=== PATIENT | female | born 1935 | race Caucasian/White ===

== ENCOUNTER 2017-05-20 15:14 | Inpatient (IN) | payer OTHER ==
[~2017-05-20] VITALS: Ht 172.7 cm; Wt 104.1 kg
[~2017-05-20 15:14] MED LIST: ASPI-496 PO; ATEN100T PO; ATEN50TA41 PO; HYDR25TA6 PO; LISI-167 PO; LOVA20TA2 PO; MELO15TA24 PO; METF500T4 PO; METO-93 PO; OMEP40CA6 PO; OXYB5TAB7 PO; WARF5TAB7 PO-COUM
[2017-05-20] MEDS ORDERED: OMEP20TA62 PO (16:23)
[2017-05-20] MEDS ORDERED: LEVO500T47 PO (16:23)
[2017-05-20] MEDS ORDERED: CALC1CAP8 PO (16:23)
[2017-05-20] MEDS ORDERED: LISI2.5T PO (16:23)
[2017-05-20] MEDS ORDERED: CYCL7.5T25 PO (16:23)
[2017-05-20] MEDS ORDERED: FURO-93 PO (16:23)
[2017-05-20] MEDS ORDERED: ROPI0.2537 PO (16:26)
[2017-05-20] MEDS ORDERED: DOCU-131 PO (16:26)
[2017-05-20] MEDS ORDERED: DIAZ2TAB PO (16:26)
[2017-05-20] MEDS ORDERED: OXYB5TAB33 PO (16:26)
[2017-05-20] MEDS ORDERED: METO50TA4 PO (16:26)
[2017-05-20] MEDS ORDERED: SODIUM CHLORIDE 0.9% 1,000ML IVBOLUS ONE (16:30)
[2017-05-20] MEDS ORDERED: SODIUM CHLORIDE FLUSH 10ML SYR IVF ONE (16:30)
[2017-05-20 16:49] LABS: BASOPHILS % (AUTO) 0 % (0-1); EOSINOPHILS # (AUTO) 0.04 x10^3/uL (0-0.4); EOSINOPHILS % (AUTO) 1 % (1-7); LYMPHOCYTES # (AUTO) 1.44 x10^3/uL (1-3.4); LYMPHOCYTES % (AUTO) 21 % (22-44); MD NO; MEAN CORPUSCULAR HEMOGLOBIN 24.9 pg (27.0-34.8); MEAN CORPUSCULAR HGB CONC 32.6 g/dL (32.4-35.8); MEAN CORPUSCULAR VOLUME 76.3 fL (80-100); MEAN PLATELET VOLUME 9.1 fL (7.4-10.4); MONOCYTES # (AUTO) 0.64 x10^3/uL (0.2-0.8); MONOCYTES % (AUTO) 9 % (2-9); NEUTROPHILS # (AUTO) 4.87 x10^3/uL (1.8-6.8); NEUTROPHILS % (AUTO) 70 % (42-75); PLATELET COUNT 226 x10^3/uL (130-400); RED BLOOD COUNT 5.32 x10^6/uL (3.82-5.3); RED CELL DISTRIBUTION WIDTH 18.4 % (9.6-15.2)
[2017-05-20 16:58] LABS: INTERNATIONAL NORMALIZED RATIO 2.62 (0.93-1.1); PROTHROMBIN TIME 26.5 Seconds (9.6-11.5)
[2017-05-20 17:01] LABS: ALBUMIN 3.2 g/dL (3.4-5.0); ANION GAP 7 mmol/L (5-15); CALCIUM 8.9 mg/dL (8.5-10.1); CHLORIDE 101 mmol/L (98-107); CREATININE 3.07 mg/dL (0.55-1.02)
[2017-05-20 17:05] LABS: FREE T4 (FREE THYROXINE) 1.85 ng/dL (0.76-1.46); TROPONIN I < 0.015 ng/mL (0.000-0.045)
[2017-05-20] MEDS ORDERED: SODIUM CHLORIDE 0.9% 1,000 ML IV ONE ×2 (18:26→20:00)
[2017-05-20] MEDS ORDERED: SODIUM CHLORIDE FLUSH 10ML SYR IVF PRN (18:30)
[2017-05-20] MEDS ORDERED: SODIUM CHLORIDE 0.9% 1,000 ML IV STA (19:09)
[2017-05-20] MEDS ORDERED: PROMETHAZINE 25 MG/ML, 1ML IM PRN (19:30)
[2017-05-20] MEDS ORDERED: ONDANSETRON 2MG/ML, 2ML IVPush PRN (19:30)
[2017-05-20] MEDS ORDERED: ONDANSETRON ODT 4 MG PO PRN (19:30)
[2017-05-20] MEDS ORDERED: ACETAMINOPHEN 325 MG TABLET PO PRN (19:30)
[2017-05-20 20:01] LABS: BASOPHILS # (AUTO) 0.02 x10^3/uL (0-0.1); BASOPHILS % (AUTO) 0 % (0-1); EOSINOPHILS # (AUTO) 0.05 x10^3/uL (0-0.4); EOSINOPHILS % (AUTO) 1 % (1-7); LYMPHOCYTES # (AUTO) 1.78 x10^3/uL (1-3.4); LYMPHOCYTES % (AUTO) 31 % (22-44); MD NO; MEAN CORPUSCULAR HEMOGLOBIN 25.4 pg (27.0-34.8); MEAN CORPUSCULAR HGB CONC 33.3 g/dL (32.4-35.8); MEAN CORPUSCULAR VOLUME 76.1 fL (80-100); MEAN PLATELET VOLUME 9.1 fL (7.4-10.4); MONOCYTES # (AUTO) 0.51 x10^3/uL (0.2-0.8); MONOCYTES % (AUTO) 9 % (2-9); NEUTROPHILS # (AUTO) 3.47 x10^3/uL (1.8-6.8); NEUTROPHILS % (AUTO) 60 % (42-75); PLATELET COUNT 207 x10^3/uL (130-400); RED BLOOD COUNT 4.86 x10^6/uL (3.82-5.3); RED CELL DISTRIBUTION WIDTH 18.4 % (9.6-15.2)
[2017-05-20 20:13] LABS: TROPONIN I < 0.015 ng/mL (0.000-0.045)
[2017-05-20 20:34] LABS: HEMOGLOBIN A1C 6.4 % (4.2-6.3)
[2017-05-20] MEDS: HEPARIN 5,000 UNITS/ML, 1ML SQ SCH (21:33)
[2017-05-20 21:35] VITALS: BP 110/69
[2017-05-21] MEDS ORDERED: TRAZODONE 50MG TABLET ONE (01:12)
[2017-05-21 01:21] VITALS: BP 105/67
[2017-05-21] MEDS ORDERED: TRAZODONE 50MG TABLET PO ONE (01:30)
[2017-05-21 02:31] LABS: TROPONIN I < 0.015 ng/mL (0.000-0.045)
[2017-05-21] MEDS: HEPARIN 5,000 UNITS/ML, 1ML SQ SCH (05:20)
[2017-05-21] MEDS: ASPIRIN 325 MG TABLET EC PO SCH (05:20)
[2017-05-21 06:13] LABS: ALBUMIN 2.8 g/dL (3.4-5.0); ANION GAP 12 mmol/L (5-15); CALCIUM 8.8 mg/dL (8.5-10.1); CHLORIDE 104 mmol/L (98-107)
[2017-05-21 06:23] LABS: ALANINE AMINOTRANSFERASE 19 U/L (12-78); ALKALINE PHOSPHATASE 101 U/L (45-117); BILIRUBIN,TOTAL 0.4 mg/dL (0.2-1.0); CHOL/HDL RATIO 3.4; CHOLESTEROL, TOTAL 112 mg/dL (140-239); CREATININE 2.24 mg/dL (0.55-1.02); HDL CHOL % 29 % (28-40); HDL CHOLESTEROL (DIRECT) 33 mg/dL (40-60); LDL CHOLESTEROL,CALCULATED 57 mg/dL (54-169); LDL/HDL RATIO 1.7 (0.5-3.0); TOTAL PROTEIN 6.6 g/dL (6.4-8.2); TRIGLYCERIDES 112 mg/dL (50-200); VLDL CHOLESTEROL 22 mg/dL (0-25)
[2017-05-21 07:48] VITALS: BP 114/71
[2017-05-21] MEDS ORDERED: PHARMACY MAY ADJ FOR RENAL FX MC PRN (13:30)
[2017-05-21] MEDS ORDERED: NITROGLYCERIN 0.4 MG/SPRAY SL PRN (13:30)
[2017-05-21] MEDS ORDERED: NITROGLYCERIN 0.4 MG BOTTLE (25 TABS) SL PRN (13:30)
[2017-05-21] MEDS: SODIUM CHLORIDE 0.9% 1,000 ML IV SCH ×2 (13:48→23:47)
[2017-05-21 14:04] VITALS: BP 121/73
[2017-05-21] MEDS: INSULIN ASPART 100 UNITS/ML, PEN SQ-INSULIN SCH ×2 (16:00→21:00)
[2017-05-21 20:07] LABS: CULTURE INDICATED? YES; MICROSCOPIC INDICATED
[2017-05-21] MEDS: SODIUM CHLORIDE FLUSH 10ML SYR IVF SCH (21:19)
[2017-05-21] MEDS: PRAMIPEXOLE 0.125MG TABLET PO SCH (21:19)
[2017-05-21 21:20] VITALS: BP 120/53
[2017-05-22 02:00] VITALS: BP 96/61
[2017-05-22] MEDS: ASPIRIN 325 MG TABLET EC PO SCH (05:53)
[2017-05-22 06:02] LABS: INTERNATIONAL NORMALIZED RATIO 2.14 (0.93-1.1); PROTHROMBIN TIME 21.7 Seconds (9.6-11.5)
[2017-05-22 06:13] LABS: CHLORIDE 106 mmol/L (98-107)
[2017-05-22 06:17] LABS: BASOPHILS # (AUTO) 0.02 x10^3/uL (0-0.1); BASOPHILS % (AUTO) 1 % (0-1); EOSINOPHILS # (AUTO) 0.06 x10^3/uL (0-0.4); EOSINOPHILS % (AUTO) 2 % (1-7); LYMPHOCYTES % (AUTO) 40 % (22-44); MD NO; MEAN CORPUSCULAR HEMOGLOBIN 25.1 pg (27.0-34.8); MEAN CORPUSCULAR HGB CONC 32.9 g/dL (32.4-35.8); MEAN CORPUSCULAR VOLUME 76.4 fL (80-100); MEAN PLATELET VOLUME 9.4 fL (7.4-10.4); MONOCYTES # (AUTO) 0.33 x10^3/uL (0.2-0.8); MONOCYTES % (AUTO) 10 % (2-9); NEUTROPHILS # (AUTO) 1.55 x10^3/uL (1.8-6.8); NEUTROPHILS % (AUTO) 48 % (42-75); PLATELET COUNT 176 x10^3/uL (130-400); RED BLOOD COUNT 4.72 x10^6/uL (3.82-5.3); RED CELL DISTRIBUTION WIDTH 18.3 % (9.6-15.2)
[2017-05-22 06:45] LABS: ALANINE AMINOTRANSFERASE 18 U/L (12-78); ALBUMIN 2.9 g/dL (3.4-5.0); ALKALINE PHOSPHATASE 94 U/L (45-117); ANION GAP 8 mmol/L (5-15); BILIRUBIN,TOTAL 0.4 mg/dL (0.2-1.0); CALCIUM 8.6 mg/dL (8.5-10.1); CREATININE 1.57 mg/dL (0.55-1.02); TOTAL PROTEIN 6.3 g/dL (6.4-8.2)
[2017-05-22] MEDS: INSULIN ASPART 100 UNITS/ML, PEN SQ-INSULIN SCH ×4 (07:00→21:00)
[2017-05-22 07:59] VITALS: BP 129/51
[2017-05-22] MEDS: SODIUM CHLORIDE FLUSH 10ML SYR IVF SCH ×2 (08:30→22:48)
[2017-05-22] MEDS ORDERED: REGADENOSON 0.4 MG/5 ML SYRINGE ONE (10:18)
[2017-05-22] MEDS: SODIUM CHLORIDE 0.9% 1,000 ML IV SCH ×2 (12:57→22:48)
[2017-05-22 14:08] LABS: HCT (SEDRATE) 35.8 % (34.6-47.8)
[2017-05-22 14:55] VITALS: BP 132/54
[2017-05-22] MEDS ORDERED: WARFARIN 5 MG TABLET PO-COUM ONE (18:00)
[2017-05-22 19:24] VITALS: BP 122/65
[2017-05-22] MEDS: PRAMIPEXOLE 0.125MG TABLET PO SCH (22:48)
[2017-05-23 00:05] VITALS: BP 114/70
[2017-05-23] MEDS: METHOCARBAMOL 500 MG TABLET PO PRN ×2 (01:06→06:31)
[2017-05-23 05:09] LABS: BASOPHILS # (AUTO) 0.02 x10^3/uL (0-0.1); BASOPHILS % (AUTO) 1 % (0-1); EOSINOPHILS # (AUTO) 0.06 x10^3/uL (0-0.4); EOSINOPHILS % (AUTO) 2 % (1-7); LYMPHOCYTES # (AUTO) 1.43 x10^3/uL (1-3.4); LYMPHOCYTES % (AUTO) 38 % (22-44); MD NO; MEAN CORPUSCULAR HEMOGLOBIN 25.5 pg (27.0-34.8); MEAN CORPUSCULAR HGB CONC 33.3 g/dL (32.4-35.8); MEAN CORPUSCULAR VOLUME 76.6 fL (80-100); MEAN PLATELET VOLUME 9.3 fL (7.4-10.4); MONOCYTES # (AUTO) 0.37 x10^3/uL (0.2-0.8); MONOCYTES % (AUTO) 10 % (2-9); NEUTROPHILS # (AUTO) 1.92 x10^3/uL (1.8-6.8); NEUTROPHILS % (AUTO) 51 % (42-75); PLATELET COUNT 155 x10^3/uL (130-400); RED CELL DISTRIBUTION WIDTH 18.4 % (9.6-15.2)
[2017-05-23 05:12] LABS: INTERNATIONAL NORMALIZED RATIO 2.14 (0.93-1.1); PROTHROMBIN TIME 21.7 Seconds (9.6-11.5)
[2017-05-23 05:18] LABS: CHLORIDE 108 mmol/L (98-107)
[2017-05-23 05:19] LABS: ANION GAP 6 mmol/L (5-15); CALCIUM 8.5 mg/dL (8.5-10.1); CREATININE 1.03 mg/dL (0.55-1.02)
[2017-05-23] MEDS: ASPIRIN 325 MG TABLET EC PO SCH (06:31)
[2017-05-23] MEDS: SODIUM CHLORIDE 0.9% 1,000 ML IV SCH (06:34)
[2017-05-23] MEDS: INSULIN ASPART 100 UNITS/ML, PEN SQ-INSULIN SCH ×2 (07:00→11:00)
[2017-05-23 07:37] VITALS: BP 124/73
[2017-05-23] MEDS: SODIUM CHLORIDE FLUSH 10ML SYR IVF SCH (08:52)
[2017-05-23 12:31] VITALS: BP 119/64
[2017-05-23] MEDS ORDERED: WARFARIN 5 MG TABLET PO-COUM SCH (18:00)
== END 2017-05-23 17:15 | disposition home health service (06) | DRG 542 ==
LOC: ED 18:03 → EDIP 18:26 → 4EST 21:09 → DCLOUNGE 05-23 16:48
PROVIDERS: ADMIT Surgery; ATTEND Surgery
DX: M48.54XA Collapsed vertebra, not elsewhere classified, thoracic region, initial encounter for fracture (principal); N17.0 Acute kidney failure with tubular necrosis; I95.9 Hypotension, unspecified; I24.9 Acute ischemic heart disease, unspecified; I48.2 Chronic atrial fibrillation; E86.0 Dehydration; E11.9 Type 2 diabetes mellitus without complications; D72.819 Decreased white blood cell count, unspecified; E78.00 Pure hypercholesterolemia, unspecified; I10 Essential (primary) hypertension; K21.9 Gastro-esophageal reflux disease without esophagitis; G47.33 Obstructive sleep apnea (adult) (pediatric); G25.81 Restless legs syndrome; K59.00 Constipation, unspecified; M12.9 Arthropathy, unspecified; M51.36 Other intervertebral disc degeneration, lumbar region; G89.29 Other chronic pain; M54.9 Dorsalgia, unspecified; E78.5 Hyperlipidemia, unspecified; Z79.01 Long term (current) use of anticoagulants; Z87.820 Personal history of traumatic brain injury; R07.89 Other chest pain
CPT/HCPCS: 36415; 70450; 71010; 78452; 80048; 80053; 80061; 81001; 82040; 82728; 82962; 83036; 83540; 83550; 83735; 84100; 84439; 84443; 84466; 84484; 85025; 85610; 85651; 85730; 87077; 87086; 87186; 93005; 93017; 96360; 96361; J1644; J2785; A9502; C9898; J7030

== ENCOUNTER → 2017-07-02 | Outpatient (CLI) | payer OTHER ==
[~2017-07-02] MED LIST changes: +CALC1CAP8 PO; +CYCL7.5T25 PO; +DIAZ2TAB PO; +DOCU-131 PO; +FURO-93 PO; +LEVO500T47 PO; +LISI2.5T PO; +METO50TA4 PO; +OMEP20TA62 PO; +OXYB5TAB33 PO; +ROPI0.2537 PO
== END | disposition home or self-care (01) ==
LOC: RAD 14:47
PROVIDERS: ATTEND Neurological Surgery
DX: M47.897 Other spondylosis, lumbosacral region (principal); M48.54XA Collapsed vertebra, not elsewhere classified, thoracic region, initial encounter for fracture
CPT/HCPCS: 72100

== ENCOUNTER 2017-09-11 07:19 | Inpatient (IN) | payer OTHER ==
[2017-09-11] VITALS (25 sets, daily range): BP systolic 117–171; BP diastolic 40–113
[~2017-09-11] VITALS: Ht 175.3 cm; Wt 99.1 kg
[~2017-09-11 07:19] MED LIST changes: +CEFD300C37 PO; +FURO20TA3 PO; +GABA300C10 PO; -METF500T4 PO; +METF500T5 PO; +METO25TA35 PO; +METR500T PO; +OXYC1TAB7 PO; +WARF-36 PO-COUM; -WARF5TAB7 PO-COUM
[2017-09-11] MEDS ORDERED: SODIUM CHLORIDE FLUSH 10ML SYR IVF ONE (08:00)
[2017-09-11 08:18] LABS: BASOPHILS # (AUTO) 0.03 x10^3/uL (0-0.1); BASOPHILS % (AUTO) 1 % (0-1); EOSINOPHILS # (AUTO) 0.06 x10^3/uL (0-0.4); EOSINOPHILS % (AUTO) 1 % (1-7); LYMPHOCYTES # (AUTO) 1.28 x10^3/uL (1-3.4); LYMPHOCYTES % (AUTO) 28 % (22-44); MD NO; MEAN CORPUSCULAR HEMOGLOBIN 25.7 pg (27.0-34.8); MEAN CORPUSCULAR HGB CONC 32.5 g/dL (32.4-35.8); MEAN PLATELET VOLUME 7.5 fL (7.4-10.4); MONOCYTES # (AUTO) 0.37 x10^3/uL (0.2-0.8); MONOCYTES % (AUTO) 8 % (2-9); NEUTROPHILS % (AUTO) 63 % (42-75); PLATELET COUNT 371 x10^3/uL (130-400); RED BLOOD COUNT 2.96 x10^6/uL (3.82-5.3); RED CELL DISTRIBUTION WIDTH 17.2 % (9.6-15.2)
[2017-09-11 08:25] LABS: INTERNATIONAL NORMALIZED RATIO 2.76 (0.93-1.1); PROTHROMBIN TIME 27.9 Seconds (9.6-11.5)
[2017-09-11 08:30] LABS: ALANINE AMINOTRANSFERASE 11 U/L (12-78); ALBUMIN 2.5 g/dL (3.4-5.0); ANION GAP 9 mmol/L (5-15); CHLORIDE 108 mmol/L (98-107); CREATININE 0.84 mg/dL (0.55-1.02)
[2017-09-11 08:32] LABS: ALKALINE PHOSPHATASE 51 U/L (45-117); BILIRUBIN,TOTAL 0.4 mg/dL (0.2-1.0); TOTAL PROTEIN 6.1 g/dL (6.4-8.2)
[2017-09-11] MEDS ORDERED: OMNIPAQUE 350 MG/ML, 100ML BOTTLE ONE (09:46)
[2017-09-11] MEDS ORDERED: PHYTONADIONE 1 MG/0.5ML IM ONE (10:00)
[2017-09-11] MEDS ORDERED: FENTANYL PF 100 MCG/2ML ONE (10:25)
[2017-09-11] MEDS ORDERED: PHYTONADIONE 10 MG/ML, 1ML ONE (10:25)
[2017-09-11] MEDS: FENTANYL PF 100 MCG/2ML IVPush PRN ×2 (10:35→11:15)
[2017-09-11] MEDS ORDERED: SODIUM CHLORIDE 0.9% 1,000 ML IV SCH (12:00)
[2017-09-11] MEDS ORDERED: NS + 40MEQ KCL 1,000 ML IV SCH (13:30)
[2017-09-11] MEDS ORDERED: MORPHINE SULFATE 4 MG/ML, 1ML ONE (15:32)
[2017-09-11] MEDS: PIPERACILLIN/TAZO/PMX 3.375GM 50 ML IV SCH ×2 (15:34→22:05)
[2017-09-11] MEDS: morphine SULFATE 10 MG/ML, 1ML IVPush PRN ×2 (15:35→20:15)
[2017-09-11] MEDS ORDERED: PHYTONADIONE 10 MG in SODIUM CHLORIDE 0.9% 50 ML IV ONE (19:00)
[2017-09-11] MEDS ORDERED: FUROSEMIDE 20 MG/2 ML IV PRN (19:00)
[2017-09-11 20:51] LABS: INTERNATIONAL NORMALIZED RATIO 1.92 (0.93-1.1); PROTHROMBIN TIME 19.5 Seconds (9.6-11.5)
[2017-09-11 20:55] LABS: ANION GAP 11 mmol/L (5-15); CALCIUM 7.7 mg/dL (8.5-10.1); CHLORIDE 111 mmol/L (98-107); CREATININE 0.76 mg/dL (0.55-1.02)
[2017-09-11] MEDS ORDERED: MAGNESIUM SULFATE PMX 4GM/100M 100 ML IV ONE (22:00)
[2017-09-11] MEDS ORDERED: POTASSIUM CHLORIDE 40 MEQ in SODIUM CHLORIDE 0.9% 500 ML IV ONE (22:00)
[2017-09-11] MEDS: D5%-0.45NACL+KCL 40MEQ 1,000 ML IV SCH (22:29)
[2017-09-12] VITALS (12 sets, daily range): BP systolic 110–139; BP diastolic 33–61
[2017-09-12] MEDS: morphine SULFATE 10 MG/ML, 1ML IVPush PRN ×6 (00:10→16:52)
[2017-09-12] MEDS: PIPERACILLIN/TAZO/PMX 3.375GM 50 ML IV SCH ×4 (02:38→19:18)
[2017-09-12 03:12] LABS: INTERNATIONAL NORMALIZED RATIO 1.33 (0.93-1.1); PROTHROMBIN TIME 13.6 Seconds (9.6-11.5)
[2017-09-12 03:15] LABS: BASOPHILS # (AUTO) 0.02 x10^3/uL (0-0.1); BASOPHILS % (AUTO) 0 % (0-1); EOSINOPHILS # (AUTO) 0.07 x10^3/uL (0-0.4); EOSINOPHILS % (AUTO) 1 % (1-7); LYMPHOCYTES # (AUTO) 1.61 x10^3/uL (1-3.4); LYMPHOCYTES % (AUTO) 25 % (22-44); MD NO; MEAN CORPUSCULAR HEMOGLOBIN 28.1 pg (27.0-34.8); MEAN CORPUSCULAR HGB CONC 33.1 g/dL (32.4-35.8); MEAN PLATELET VOLUME 7.7 fL (7.4-10.4); MONOCYTES # (AUTO) 0.61 x10^3/uL (0.2-0.8); MONOCYTES % (AUTO) 9 % (2-9); NEUTROPHILS % (AUTO) 65 % (42-75); PLATELET COUNT 271 x10^3/uL (130-400)
[2017-09-12 03:17] LABS: ALANINE AMINOTRANSFERASE 13 U/L (12-78); ALBUMIN 2.5 g/dL (3.4-5.0); ANION GAP 10 mmol/L (5-15); CALCIUM 7.6 mg/dL (8.5-10.1); CHLORIDE 113 mmol/L (98-107); CREATININE 0.72 mg/dL (0.55-1.02)
[2017-09-12 03:19] LABS: ALKALINE PHOSPHATASE 46 U/L (45-117); BILIRUBIN,TOTAL 1.2 mg/dL (0.2-1.0); TOTAL PROTEIN 5.5 g/dL (6.4-8.2)
[2017-09-12] MEDS ORDERED: POTASSIUM CHLORIDE 40 MEQ in SODIUM CHLORIDE 0.9% 500 ML IV ONE (07:00)
[2017-09-12 07:15] LABS: CULTURE INDICATED? NO
[2017-09-12 07:16] LABS: MICROSCOPIC AUTO
[2017-09-12 09:59] LABS: INTERNATIONAL NORMALIZED RATIO 1.28 (0.93-1.1); PROTHROMBIN TIME 13.1 Seconds (9.6-11.5)
[2017-09-12] MEDS ORDERED: MIDAZOLAM 1 MG/ML, 2ML ONE (11:08)
[2017-09-12] MEDS ORDERED: FENTANYL PF 250 MCG/5ML ONE (11:08)
[2017-09-12] MEDS ORDERED: PHENYLEPHRINE 10 MG/ML ONE (11:41)
[2017-09-12] MEDS ORDERED: THROMBIN 20,000 UNIT VIAL TP ONE (12:13)
[2017-09-12] MEDS ORDERED: FENTANYL PF 100 MCG/2ML ONE ×2 (13:04→14:00)
[2017-09-12] MEDS ORDERED: SUCCINYLCHOLINE 20 MG/ML, 10ML ONE (13:27)
[2017-09-12] MEDS ORDERED: CEFAZOLIN 1,000 MG ONE (13:27)
[2017-09-12] MEDS ORDERED: ONDANSETRON 2MG/ML, 2ML ONE (13:27)
[2017-09-12] MEDS ORDERED: DEXAMETHASONE 4 MG/ML, 1ML ONE (13:27)
[2017-09-12] MEDS ORDERED: PROPOFOL 10 MG/ML, 20ML ONE (13:27)
[2017-09-12] MEDS ORDERED: ROCURONIUM 10 MG/ML,10ML ONE (13:27)
[2017-09-12] MEDS ORDERED: NEOSTIGMINE 1 MG/ML, 10ML ONE (13:27)
[2017-09-12] MEDS ORDERED: GLYCOPYRROLATE 0.2MG/1ML, 5ML ONE (13:27)
[2017-09-12] MEDS ORDERED: ONDANSETRON 2MG/ML, 2ML IV PRN (15:00)
[2017-09-12 15:43] LABS: INTERNATIONAL NORMALIZED RATIO 1.23 (0.93-1.1); PROTHROMBIN TIME 12.6 Seconds (9.6-11.5)
[2017-09-12] MEDS: D5%-0.45NACL+KCL 40MEQ 1,000 ML IV SCH (16:52)
[2017-09-12] MEDS: FAMOTIDINE 20 MG/2 ML IVPush SCH (16:53)
[2017-09-12] MEDS ORDERED: LACTATED RINGERS 500 ML IVBOLUS ONE (21:00)
[2017-09-12] MEDS ORDERED: NOREPINEPHRINE 4 MG in SODIUM CHLORIDE 0.9% 246 ML IV PRN (21:00)
[2017-09-12 21:01] LABS: INTERNATIONAL NORMALIZED RATIO 1.26 (0.93-1.1); PROTHROMBIN TIME 12.9 Seconds (9.6-11.5)
[2017-09-13] MEDS: PIPERACILLIN/TAZO/PMX 3.375GM 50 ML IV SCH ×4 (02:33→19:45)
[2017-09-13] MEDS: FAMOTIDINE 20 MG/2 ML IVPush SCH (02:36)
[2017-09-13 03:21] LABS: INTERNATIONAL NORMALIZED RATIO 1.24 (0.93-1.1); PROTHROMBIN TIME 12.7 Seconds (9.6-11.5)
[2017-09-13 03:26] LABS: ANION GAP 5 mmol/L (5-15); CALCIUM 7.2 mg/dL (8.5-10.1); CHLORIDE 115 mmol/L (98-107)
[2017-09-13 03:27] LABS: BASOPHILS # (AUTO) 0.04 x10^3/uL (0-0.1); BASOPHILS % (AUTO) 0 % (0-1); EOSINOPHILS # (AUTO) 0.03 x10^3/uL (0-0.4); EOSINOPHILS % (AUTO) 0 % (1-7); LYMPHOCYTES # (AUTO) 1.17 x10^3/uL (1-3.4); LYMPHOCYTES % (AUTO) 11 % (22-44); MD NO; MEAN CORPUSCULAR HEMOGLOBIN 27.9 pg (27.0-34.8); MEAN CORPUSCULAR HGB CONC 32.5 g/dL (32.4-35.8); MEAN CORPUSCULAR VOLUME 85.7 fL (80-100); MEAN PLATELET VOLUME 7.9 fL (7.4-10.4); MONOCYTES # (AUTO) 0.81 x10^3/uL (0.2-0.8); MONOCYTES % (AUTO) 8 % (2-9); NEUTROPHILS # (AUTO) 8.19 x10^3/uL (1.8-6.8); NEUTROPHILS % (AUTO) 80 % (42-75); PLATELET COUNT 315 x10^3/uL (130-400); RED BLOOD COUNT 3.07 x10^6/uL (3.82-5.3); RED CELL DISTRIBUTION WIDTH 16.3 % (9.6-15.2)
[2017-09-13 03:30] LABS: ALANINE AMINOTRANSFERASE 10 U/L (12-78); ALKALINE PHOSPHATASE 41 U/L (45-117); BILIRUBIN,TOTAL 0.7 mg/dL (0.2-1.0); CREATININE 0.64 mg/dL (0.55-1.02); TOTAL PROTEIN 4.8 g/dL (6.4-8.2)
[2017-09-13 04:00] VITALS: BP 152/83
[2017-09-13] MEDS: D5%-0.45NACL+KCL 40MEQ 1,000 ML IV SCH ×2 (04:38→16:11)
[2017-09-13 19:09] LABS: ANION GAP 2 mmol/L (5-15); CALCIUM 7.7 mg/dL (8.5-10.1); CHLORIDE 114 mmol/L (98-107); CREATININE 0.73 mg/dL (0.55-1.02)
[2017-09-13] MEDS: morphine SULFATE 10 MG/ML, 1ML IVPush PRN (19:45)
[2017-09-14] MEDS: morphine SULFATE 10 MG/ML, 1ML IVPush PRN (02:23)
[2017-09-14] MEDS: PIPERACILLIN/TAZO/PMX 3.375GM 50 ML IV SCH ×4 (02:24→21:38)
[2017-09-14] MEDS: D5%-0.45NACL+KCL 40MEQ 1,000 ML IV SCH (02:41)
[2017-09-14 04:00] VITALS: BP 149/49
[2017-09-14 05:02] LABS: BASOPHILS # (AUTO) 0.04 x10^3/uL (0-0.1); BASOPHILS % (AUTO) 0 % (0-1); EOSINOPHILS # (AUTO) 0.07 x10^3/uL (0-0.4); EOSINOPHILS % (AUTO) 1 % (1-7); LYMPHOCYTES # (AUTO) 1.16 x10^3/uL (1-3.4); LYMPHOCYTES % (AUTO) 11 % (22-44); MD NO; MEAN CORPUSCULAR HEMOGLOBIN 28.1 pg (27.0-34.8); MEAN CORPUSCULAR HGB CONC 32.5 g/dL (32.4-35.8); MEAN CORPUSCULAR VOLUME 86.5 fL (80-100); MEAN PLATELET VOLUME 7.9 fL (7.4-10.4); MONOCYTES # (AUTO) 1.18 x10^3/uL (0.2-0.8); MONOCYTES % (AUTO) 11 % (2-9); NEUTROPHILS # (AUTO) 8.52 x10^3/uL (1.8-6.8); NEUTROPHILS % (AUTO) 78 % (42-75); PLATELET COUNT 310 x10^3/uL (130-400); RED BLOOD COUNT 2.82 x10^6/uL (3.82-5.3); RED CELL DISTRIBUTION WIDTH 16.8 % (9.6-15.2)
[2017-09-14 05:12] LABS: CHLORIDE 112 mmol/L (98-107)
[2017-09-14 05:26] LABS: ALANINE AMINOTRANSFERASE 10 U/L (12-78); ALKALINE PHOSPHATASE 44 U/L (45-117); ANION GAP 5 mmol/L (5-15); BILIRUBIN,TOTAL 0.7 mg/dL (0.2-1.0); CALCIUM 7.5 mg/dL (8.5-10.1); CREATININE 0.72 mg/dL (0.55-1.02); TOTAL PROTEIN 4.9 g/dL (6.4-8.2)
[2017-09-14] MEDS ORDERED: D5%-0.45% NACL 1,000 ML IV SCH (06:30)
[2017-09-14] MEDS: FAMOTIDINE 20 MG/2 ML IVPush SCH (08:52)
[2017-09-14 14:31] VITALS: BP 146/77
[2017-09-14] MEDS: HYDROcodone/APAP 7.5-325MG/15ML UDC PO PRN ×2 (15:17→22:01)
[2017-09-14 18:50] VITALS: BP 143/68
[2017-09-14 22:07] VITALS: BP 124/67
[2017-09-14 23:09] VITALS: BP 141/94
[2017-09-15] MEDS ORDERED: OMNIPAQUE 350 MG/ML, 100ML BOTTLE ONE (01:31)
[2017-09-15] MEDS: PIPERACILLIN/TAZO/PMX 3.375GM 50 ML IV SCH ×3 (04:11→20:07)
[2017-09-15 04:31] LABS: ALBUMIN 1.9 g/dL (3.4-5.0); ANION GAP 4 mmol/L (5-15); CALCIUM 7.4 mg/dL (8.5-10.1); CHLORIDE 111 mmol/L (98-107); MEAN CORPUSCULAR HEMOGLOBIN 28.5 pg (27.0-34.8); MEAN CORPUSCULAR HGB CONC 32.8 g/dL (32.4-35.8); MEAN CORPUSCULAR VOLUME 86.9 fL (80-100); MEAN PLATELET VOLUME 7.9 fL (7.4-10.4); PLATELET COUNT 276 x10^3/uL (130-400); RED BLOOD COUNT 2.45 x10^6/uL (3.82-5.3); RED CELL DISTRIBUTION WIDTH 17.3 % (9.6-15.2)
[2017-09-15 04:34] LABS: ALANINE AMINOTRANSFERASE 9 U/L (12-78); ALKALINE PHOSPHATASE 45 U/L (45-117); BILIRUBIN,TOTAL 0.5 mg/dL (0.2-1.0); CREATININE 0.75 mg/dL (0.55-1.02); TOTAL PROTEIN 4.7 g/dL (6.4-8.2)
[2017-09-15 04:51] VITALS: BP 145/64
[2017-09-15 05:46] LABS: MD YES
[2017-09-15 06:31] LABS: <PLATELET ESTIMATE> ADEQUATE; <PLT MORPHOLOGY> NORMAL PLT MORPH; ANISOCYTOSIS 1+; EOS#(MANUAL) 0.08 x10^3/uL (0.0-0.4); EOS% (MANUAL) 1 % (1-7); LYMPH#(MANUAL) 0.76 x10^3/uL (1-3.4); LYMPHS% (MANUAL) 10 % (22-44); MONOS#(MANUAL) 0.15 x10^3/uL (0.3-2.7); MONOS% (MANUAL) 2 % (2-9); POLYCHROMASIA 1+; SEG#(MANUAL) 6.61 x10^3/uL (1.8-6.8); SEGS% (MANUAL) 87 % (42-75)
[2017-09-15] MEDS ORDERED: MAGNESIUM SULFATE PMX 2GM/50ML 50 ML IV ONE (08:30)
[2017-09-15] MEDS: morphine SULFATE 10 MG/ML, 1ML IVPush PRN (11:31)
[2017-09-15] MEDS: FAMOTIDINE 20 MG/2 ML IVPush SCH (11:31)
[2017-09-15] MEDS: HYDROcodone/APAP 7.5-325MG/15ML UDC PO PRN ×2 (16:11→21:56)
[2017-09-15 23:48] VITALS: BP 135/55
[2017-09-16] VITALS (9 sets, daily range): BP systolic 107–146; BP diastolic 46–61
[2017-09-16] MEDS: PIPERACILLIN/TAZO/PMX 3.375GM 50 ML IV SCH ×4 (01:52→20:04)
[2017-09-16] MEDS: HYDROcodone/APAP 7.5-325MG/15ML UDC PO PRN ×3 (04:19→20:27)
[2017-09-16 05:32] LABS: BASOPHILS # (AUTO) 0.03 x10^3/uL (0-0.1); BASOPHILS % (AUTO) 1 % (0-1); EOSINOPHILS # (AUTO) 0.11 x10^3/uL (0-0.4); EOSINOPHILS % (AUTO) 2 % (1-7); LYMPHOCYTES # (AUTO) 0.98 x10^3/uL (1-3.4); LYMPHOCYTES % (AUTO) 15 % (22-44); MD NO; MEAN CORPUSCULAR HEMOGLOBIN 29.7 pg (27.0-34.8); MEAN CORPUSCULAR HGB CONC 33.6 g/dL (32.4-35.8); MEAN CORPUSCULAR VOLUME 88.4 fL (80-100); MEAN PLATELET VOLUME 7.8 fL (7.4-10.4); MONOCYTES # (AUTO) 0.53 x10^3/uL (0.2-0.8); MONOCYTES % (AUTO) 8 % (2-9); NEUTROPHILS # (AUTO) 4.75 x10^3/uL (1.8-6.8); NEUTROPHILS % (AUTO) 74 % (42-75); PLATELET COUNT 260 x10^3/uL (130-400); RED BLOOD COUNT 3.08 x10^6/uL (3.82-5.3); RED CELL DISTRIBUTION WIDTH 16.1 % (9.6-15.2)
[2017-09-16 05:36] LABS: ALANINE AMINOTRANSFERASE 12 U/L (12-78); ANION GAP 7 mmol/L (5-15); CALCIUM 7.5 mg/dL (8.5-10.1); CHLORIDE 107 mmol/L (98-107); CREATININE 0.66 mg/dL (0.55-1.02)
[2017-09-16 05:39] LABS: ALKALINE PHOSPHATASE 49 U/L (45-117); BILIRUBIN,TOTAL 0.6 mg/dL (0.2-1.0); TOTAL PROTEIN 5.2 g/dL (6.4-8.2)
[2017-09-16] MEDS: FAMOTIDINE 20 MG/2 ML IVPush SCH (08:09)
[2017-09-16] MEDS: morphine SULFATE 10 MG/ML, 1ML IVPush PRN (09:31)
[2017-09-17] MEDS: PIPERACILLIN/TAZO/PMX 3.375GM 50 ML IV SCH ×2 (01:24→08:19)
[2017-09-17] MEDS: HYDROcodone/APAP 7.5-325MG/15ML UDC PO PRN ×4 (02:21→21:19)
[2017-09-17 03:44] LABS: ALANINE AMINOTRANSFERASE 12 U/L (12-78); ALBUMIN 2.2 g/dL (3.4-5.0); ANION GAP 7 mmol/L (5-15); CHLORIDE 108 mmol/L (98-107); CREATININE 0.75 mg/dL (0.55-1.02)
[2017-09-17 03:46] LABS: BASOPHILS # (AUTO) 0.02 x10^3/uL (0-0.1); BASOPHILS % (AUTO) 0 % (0-1); EOSINOPHILS # (AUTO) 0.15 x10^3/uL (0-0.4); EOSINOPHILS % (AUTO) 2 % (1-7); LYMPHOCYTES # (AUTO) 0.81 x10^3/uL (1-3.4); LYMPHOCYTES % (AUTO) 13 % (22-44); MD NO; MEAN CORPUSCULAR HEMOGLOBIN 28.8 pg (27.0-34.8); MEAN CORPUSCULAR HGB CONC 33.1 g/dL (32.4-35.8); MEAN CORPUSCULAR VOLUME 87.1 fL (80-100); MEAN PLATELET VOLUME 7.9 fL (7.4-10.4); MONOCYTES # (AUTO) 0.52 x10^3/uL (0.2-0.8); MONOCYTES % (AUTO) 8 % (2-9); NEUTROPHILS # (AUTO) 4.75 x10^3/uL (1.8-6.8); NEUTROPHILS % (AUTO) 76 % (42-75); PLATELET COUNT 297 x10^3/uL (130-400); RED CELL DISTRIBUTION WIDTH 16.8 % (9.6-15.2)
[2017-09-17 03:47] LABS: ALKALINE PHOSPHATASE 66 U/L (45-117); BILIRUBIN,TOTAL 0.6 mg/dL (0.2-1.0); TOTAL PROTEIN 5.6 g/dL (6.4-8.2)
[2017-09-17 04:00] VITALS: BP 102/54
[2017-09-17] MEDS ORDERED: SODIUM PHOSPHATE 10 MMOL in SODIUM CHLORIDE 0.9% 500 ML IV ONE (07:30)
[2017-09-17] MEDS: FAMOTIDINE 20 MG/2 ML IVPush SCH (08:24)
[2017-09-17 10:45] VITALS: BP 146/76
[2017-09-17 12:28] VITALS: BP 143/71
[2017-09-17] MEDS: morphine SULFATE 10 MG/ML, 1ML IVPush PRN (15:05)
[2017-09-17 19:54] VITALS: BP 136/66
[2017-09-18] MEDS: HYDROcodone/APAP 7.5-325MG/15ML UDC PO PRN ×5 (01:16→21:12)
[2017-09-18 02:10] VITALS: BP 156/74
[2017-09-18 07:58] VITALS: BP 151/67
[2017-09-18 12:34] VITALS: BP 155/79
[2017-09-18] MEDS ORDERED: FUROSEMIDE 40 MG/4 ML IV ONE (17:00)
[2017-09-18 19:03] VITALS: BP 136/79
[2017-09-19] MEDS: HYDROcodone/APAP 7.5-325MG/15ML UDC PO PRN ×5 (01:19→21:42)
[2017-09-19 04:14] VITALS: BP 123/80
[2017-09-19 06:58] VITALS: BP 159/78
[2017-09-19] MEDS ORDERED: PROPOFOL 10 MG/ML, 20ML ONE (07:57)
[2017-09-19] MEDS ORDERED: ONDANSETRON 2MG/ML, 2ML IVPush PRN (08:00)
[2017-09-19] MEDS ORDERED: LABETALOL 5MG/ML, 20ML IV PRN (08:00)
[2017-09-19] MEDS ORDERED: MIDAZOLAM 1 MG/ML, 2ML IV PRN (08:00)
[2017-09-19] MEDS ORDERED: FENTANYL PF 100 MCG/2ML IV PRN (08:00)
[2017-09-19] MEDS ORDERED: ALBUTEROL/IPRATROPIUM 2.5MG/0.5MG, 3 ML NPPB PRN (08:00)
[2017-09-19] MEDS ORDERED: ALBUTEROL SULFATE 2.5 MG/3 ML NPPB PRN (08:00)
[2017-09-19] MEDS ORDERED: PROMETHAZINE 25 MG/ML, 1ML IV PRN (08:00)
[2017-09-19] MEDS ORDERED: OXYcodone 5 MG/5 ML ORAL.SOL UDC PO PRN (08:00)
[2017-09-19] MEDS ORDERED: hydrALAzine 20 MG/ML, 1ML IV PRN (08:00)
[2017-09-19 12:34] LABS: INTERNATIONAL NORMALIZED RATIO 1.24 (0.93-1.1); PROTHROMBIN TIME 12.7 Seconds (9.6-11.5)
[2017-09-19] MEDS ORDERED: FUROSEMIDE 40 MG/4 ML IV ONE (13:30)
[2017-09-19] MEDS ORDERED: POTASSIUM CHLORIDE 20 MEQ TAB.ER.PRT PO ONE (13:30)
[2017-09-19 14:28] VITALS: BP 146/71
[2017-09-19 18:54] VITALS: BP 148/66
[2017-09-20] MEDS: HYDROcodone/APAP 7.5-325MG/15ML UDC PO PRN ×4 (01:53→22:46)
[2017-09-20 02:00] VITALS: BP 140/63
[2017-09-20 05:03] LABS: ANION GAP 5 mmol/L (5-15); BASOPHILS # (AUTO) 0.03 x10^3/uL (0-0.1); BASOPHILS % (AUTO) 1 % (0-1); CALCIUM 7.9 mg/dL (8.5-10.1); CHLORIDE 104 mmol/L (98-107); EOSINOPHILS # (AUTO) 0.06 x10^3/uL (0-0.4); EOSINOPHILS % (AUTO) 2 % (1-7); LYMPHOCYTES # (AUTO) 0.89 x10^3/uL (1-3.4); LYMPHOCYTES % (AUTO) 21 % (22-44); MD NO; MEAN CORPUSCULAR HEMOGLOBIN 29.2 pg (27.0-34.8); MEAN CORPUSCULAR HGB CONC 33.1 g/dL (32.4-35.8); MEAN CORPUSCULAR VOLUME 88.2 fL (80-100); MEAN PLATELET VOLUME 7.6 fL (7.4-10.4); MONOCYTES # (AUTO) 0.46 x10^3/uL (0.2-0.8); MONOCYTES % (AUTO) 11 % (2-9); NEUTROPHILS # (AUTO) 2.82 x10^3/uL (1.8-6.8); NEUTROPHILS % (AUTO) 66 % (42-75); PLATELET COUNT 285 x10^3/uL (130-400); RED BLOOD COUNT 3.28 x10^6/uL (3.82-5.3); RED CELL DISTRIBUTION WIDTH 16.9 % (9.6-15.2)
[2017-09-20 07:03] VITALS: BP 143/67
[2017-09-20] MEDS ORDERED: POTASSIUM CHLORIDE 20 MEQ TAB.ER.PRT PO ONE (08:00)
[2017-09-20 12:38] LABS: CULTURE INDICATED? YES; MICROSCOPIC INDICATED
[2017-09-20 13:09] VITALS: BP 144/77
[2017-09-20] MEDS ORDERED: FUROSEMIDE 40 MG/4 ML IV ONE (14:00)
[2017-09-20 19:36] VITALS: BP 135/57
[2017-09-21 02:37] VITALS: BP 142/70
[2017-09-21 05:30] LABS: ANION GAP 7 mmol/L (5-15); CALCIUM 8.4 mg/dL (8.5-10.1); CHLORIDE 105 mmol/L (98-107); CREATININE 0.72 mg/dL (0.55-1.02)
[2017-09-21 06:55] VITALS: BP 135/78
[2017-09-21 13:00] VITALS: BP 136/79
[2017-09-21] MEDS: HYDROcodone/APAP 7.5-325MG/15ML UDC PO PRN ×2 (14:11→22:42)
[2017-09-21 19:00] VITALS: BP 134/90
[2017-09-22 02:23] VITALS: BP 148/75
[2017-09-22 05:47] LABS: BASOPHILS # (AUTO) 0.03 x10^3/uL (0-0.1); BASOPHILS % (AUTO) 1 % (0-1); EOSINOPHILS # (AUTO) 0.06 x10^3/uL (0-0.4); EOSINOPHILS % (AUTO) 2 % (1-7); LYMPHOCYTES # (AUTO) 0.94 x10^3/uL (1-3.4); LYMPHOCYTES % (AUTO) 26 % (22-44); MD NO; MEAN CORPUSCULAR HEMOGLOBIN 28.9 pg (27.0-34.8); MEAN CORPUSCULAR HGB CONC 33.1 g/dL (32.4-35.8); MEAN CORPUSCULAR VOLUME 87.4 fL (80-100); MEAN PLATELET VOLUME 7.6 fL (7.4-10.4); MONOCYTES % (AUTO) 11 % (2-9); NEUTROPHILS # (AUTO) 2.17 x10^3/uL (1.8-6.8); NEUTROPHILS % (AUTO) 60 % (42-75); PLATELET COUNT 265 x10^3/uL (130-400); RED BLOOD COUNT 3.42 x10^6/uL (3.82-5.3); RED CELL DISTRIBUTION WIDTH 17.5 % (9.6-15.2)
[2017-09-22 07:07] VITALS: BP 136/78
[2017-09-22] MEDS: HYDROcodone/APAP 7.5-325MG/15ML UDC PO PRN (10:36)
[2017-09-22] MEDS ORDERED: METO25TA35 PO (13:55)
[2017-09-22] MEDS ORDERED: CIPR500T3 PO (13:57)
[2017-09-22 14:00] VITALS: BP 141/75
[2017-09-22] MEDS ORDERED: FUROSEMIDE 20 MG/2 ML IV ONE (14:00)
[2017-09-22] MEDS ORDERED: FUROSEMIDE 20 MG/2 ML ONE (19:19)
[2017-09-22] MEDS: CIPROFLOXACIN 500 MG TABLET PO SCH (19:22)
[2017-09-22] MEDS: METOPROLOL TARTRATE 25 MG TABLET PO SCH (19:23)
[2017-09-22] MEDS: ASPIRIN 81 MG TABLET EC PO SCH (19:26)
[2017-09-22 20:33] VITALS: BP 132/70
[2017-09-22] MEDS: LOVASTATIN 20 MG TABLET PO SCH (21:06)
[2017-09-23 02:24] VITALS: BP 130/83
[2017-09-23 05:32] LABS: BASOPHILS # (AUTO) 0.03 x10^3/uL (0-0.1); BASOPHILS % (AUTO) 1 % (0-1); EOSINOPHILS # (AUTO) 0.05 x10^3/uL (0-0.4); EOSINOPHILS % (AUTO) 2 % (1-7); LYMPHOCYTES # (AUTO) 0.94 x10^3/uL (1-3.4); LYMPHOCYTES % (AUTO) 27 % (22-44); MD NO; MEAN CORPUSCULAR HEMOGLOBIN 28.4 pg (27.0-34.8); MEAN CORPUSCULAR HGB CONC 32.7 g/dL (32.4-35.8); MEAN PLATELET VOLUME 7.6 fL (7.4-10.4); MONOCYTES % (AUTO) 12 % (2-9); NEUTROPHILS # (AUTO) 2.03 x10^3/uL (1.8-6.8); NEUTROPHILS % (AUTO) 59 % (42-75); PLATELET COUNT 237 x10^3/uL (130-400); RED BLOOD COUNT 3.28 x10^6/uL (3.82-5.3); RED CELL DISTRIBUTION WIDTH 16.6 % (9.6-15.2)
[2017-09-23 05:39] LABS: CHLORIDE 104 mmol/L (98-107)
[2017-09-23] MEDS: METOPROLOL TARTRATE 25 MG TABLET PO SCH ×2 (06:05→18:43)
[2017-09-23 06:31] LABS: ALBUMIN 2.4 g/dL (3.4-5.0); CREATININE 0.75 mg/dL (0.55-1.02)
[2017-09-23 06:33] LABS: ALANINE AMINOTRANSFERASE 12 U/L (12-78); ALKALINE PHOSPHATASE 60 U/L (45-117); ANION GAP 7 mmol/L (5-15); BILIRUBIN,TOTAL 0.5 mg/dL (0.2-1.0); CALCIUM 8.1 mg/dL (8.5-10.1); TOTAL PROTEIN 5.8 g/dL (6.4-8.2)
[2017-09-23 07:22] VITALS: BP 168/90
[2017-09-23] MEDS ORDERED: MAGNESIUM SULFATE PMX 4GM/100M 100 ML IV ONE (08:30)
[2017-09-23] MEDS: CIPROFLOXACIN 500 MG TABLET PO SCH ×2 (08:39→18:43)
[2017-09-23] MEDS: HYDROcodone/APAP 7.5-325MG/15ML UDC PO PRN (10:46)
[2017-09-23 13:42] VITALS: BP 114/69
[2017-09-23] MEDS: ASPIRIN 81 MG TABLET EC PO SCH (18:43)
[2017-09-23 19:47] VITALS: BP 118/70
[2017-09-23] MEDS: LOVASTATIN 20 MG TABLET PO SCH (20:43)
[2017-09-24 02:03] VITALS: BP 129/71
[2017-09-24] MEDS: METOPROLOL TARTRATE 25 MG TABLET PO SCH (06:02)
[2017-09-24 06:58] VITALS: BP 128/72
[2017-09-24] MEDS: CIPROFLOXACIN 500 MG TABLET PO SCH (07:28)
[2017-09-24] MEDS: HYDROcodone/APAP 7.5-325MG/15ML UDC PO PRN (11:46)
[2017-09-24 13:34] VITALS: BP 127/77
== END 2017-09-24 14:05 | DRG 329 ==
LOC: ED 09:01 → EDIP 09:02 → ED 09:28 → 4WST 12:38 → CCU 18:23 → 4NOR 09-14 13:46 → CCU 09-14 23:50 → 4NOR 09-17 09:27
PROVIDERS: ADMIT Hospitalist; ATTEND Hospitalist
PROC: 30233L1 Transfusion of Nonautologous Fresh Plasma into Peripheral Vein, Percutaneous Approach (ICD-10-PCS; principal; 2017-09-11)
PROC: 30233N1 Transfusion of Nonautologous Red Blood Cells into Peripheral Vein, Percutaneous Approach (ICD-10-PCS; 2017-09-11)
PROC: 30233K1 Transfusion of Nonautologous Frozen Plasma into Peripheral Vein, Percutaneous Approach (ICD-10-PCS; 2017-09-11)
PROC: 0DBL0ZZ Excision of Transverse Colon, Open Approach (ICD-10-PCS; 2017-09-11)
PROC: 02HV33Z Insertion of Infusion Device into Superior Vena Cava, Percutaneous Approach (ICD-10-PCS; 2017-09-12)
PROC: 0DJ68ZZ Inspection of Stomach, Via Natural or Artificial Opening Endoscopic (ICD-10-PCS; 2017-09-19)
DX: K92.2 Gastrointestinal hemorrhage, unspecified (principal); E43 Unspecified severe protein-calorie malnutrition; E87.0 Hyperosmolality and hypernatremia; C77.9 Secondary and unspecified malignant neoplasm of lymph node, unspecified; D68.69 Other thrombophilia; N39.0 Urinary tract infection, site not specified; D62 Acute posthemorrhagic anemia; C18.9 Malignant neoplasm of colon, unspecified; E11.65 Type 2 diabetes mellitus with hyperglycemia; I48.2 Chronic atrial fibrillation; I50.9 Heart failure, unspecified; I11.0 Hypertensive heart disease with heart failure; E78.00 Pure hypercholesterolemia, unspecified; G25.81 Restless legs syndrome; E87.6 Hypokalemia; E78.5 Hyperlipidemia, unspecified; K21.9 Gastro-esophageal reflux disease without esophagitis; K37 Unspecified appendicitis; Z79.01 Long term (current) use of anticoagulants; Z79.82 Long term (current) use of aspirin; Z85.038 Personal history of other malignant neoplasm of large intestine; Z87.81 Personal history of (healed) traumatic fracture; Z90.49 Acquired absence of other specified parts of digestive tract; Z68.32 Body mass index [BMI] 32.0-32.9, adult
CPT/HCPCS: 36415; 71045; 74174; 74177; 78278; 80048; 80053; 81001; 83605; 83735; 84100; 85014; 85018; 85025; 85610; 86850; 86900; 86923; 87077; 87081; 87086; 87186; 88307; 93005; 93017; 96372; 96374; J0690; J1100; J1940; J2250; J2270; J2405; J2543; J2704; J2710; J3010; J3430; J3480; J3490; J7120; Q9967; A9560; J0330; J2370; J3475; J7040; P9012; P9016; P9017; S0028

== ENCOUNTER → 2017-12-03 | Outpatient (CLI) | payer OTHER ==
[~2017-12-03] MED LIST changes: +CIPR500T3 PO; +OMNIPAQUE 350 MG/ML, 100ML BOTTLE ONE
== END | disposition home or self-care (01) ==
LOC: PETCFH 09:25
PROVIDERS: ATTEND Internal Medicine Hematology & Oncology
DX: J90 Pleural effusion, not elsewhere classified (principal); C18.9 Malignant neoplasm of colon, unspecified; I70.0 Atherosclerosis of aorta; I70.8 Atherosclerosis of other arteries; R60.0 Localized edema; M48.54XA Collapsed vertebra, not elsewhere classified, thoracic region, initial encounter for fracture
CPT/HCPCS: 71260; 74177; 78306; A9503; Q9967

== ENCOUNTER → 2018-03-09 | Outpatient (CLI) | payer OTHER ==
[~2018-03-09] MED LIST changes: +METF500T17 PO; -METF500T5 PO; -ROPI0.2537 PO; +ROPI0.254 PO
== END | disposition home or self-care (01) ==
LOC: CFH 08:44
PROVIDERS: ATTEND Internal Medicine Hematology & Oncology
DX: C18.0 Malignant neoplasm of cecum (principal); M48.54XA Collapsed vertebra, not elsewhere classified, thoracic region, initial encounter for fracture; Z90.49 Acquired absence of other specified parts of digestive tract
CPT/HCPCS: 71260; 74177; Q9967

== ENCOUNTER 2018-04-30 03:48 | Inpatient (IN) | payer OTHER ==
[~2018-04-30] VITALS: Ht 172.7 cm; Wt 102.8 kg
[~2018-04-30 03:48] MED LIST changes: -OMNIPAQUE 350 MG/ML, 100ML BOTTLE ONE
[2018-04-30] MEDS ORDERED: LIDOCAINE 2%, 10ML INFIL ONE (04:00)
[2018-04-30] MEDS ORDERED: SODIUM CHLORIDE FLUSH 10ML SYR IVF ONE (04:00)
[2018-04-30] MEDS ORDERED: MORPHINE SULFATE 4 MG/ML, 1ML ONE ×2 (04:09→07:19)
[2018-04-30] MEDS ORDERED: LIDOCAINE-MPF 1%, 5ML ONE (04:10)
[2018-04-30] MEDS: MORPHINE SULFATE 4 MG/ML, 1ML IVPush PRN ×2 (04:18→07:21)
[2018-04-30 04:33] LABS: MEAN CORPUSCULAR HEMOGLOBIN 37.1 pg (27.0-34.8); MEAN CORPUSCULAR HGB CONC 33.7 g/dL (32.4-35.8); MEAN CORPUSCULAR VOLUME 110.1 fL (80-100); MEAN PLATELET VOLUME 8.6 fL (7.4-10.4); PLATELET COUNT 143 x10^3/uL (130-400); RED BLOOD COUNT 3.41 x10^6/uL (3.82-5.3)
[2018-04-30 04:39] LABS: INTERNATIONAL NORMALIZED RATIO 1.48 (0.93-1.1); PROTHROMBIN TIME 15.5 Seconds (9.6-11.5)
[2018-04-30 04:41] LABS: ALBUMIN 3.5 g/dL (3.4-5.0); ANION GAP 7 mmol/L (5-15); CALCIUM 8.8 mg/dL (8.5-10.1); CHLORIDE 106 mmol/L (98-107); CREATININE 1.08 mg/dL (0.55-1.02)
[2018-04-30 05:00] LABS: BASOPHILS # (AUTO) 0.02 x10^3/uL (0-0.1); BASOPHILS % (AUTO) 0 % (0-1); EOSINOPHILS # (AUTO) 0.01 x10^3/uL (0-0.4); EOSINOPHILS % (AUTO) 0 % (1-7); LYMPHOCYTES # (AUTO) 1.05 x10^3/uL (1-3.4); LYMPHOCYTES % (AUTO) 18 % (22-44); MD SCAN; MONOCYTES # (AUTO) 0.86 x10^3/uL (0.2-0.8); MONOCYTES % (AUTO) 15 % (2-9); NEUTROPHILS # (AUTO) 3.97 x10^3/uL (1.8-6.8); NEUTROPHILS % (AUTO) 67 % (42-75)
[2018-04-30 05:10] LABS: HCT (SEDRATE) 37.5 % (34.6-47.8)
[2018-04-30] MEDS ORDERED: OMEP40CA6 PO (05:53)
[2018-04-30] MEDS ORDERED: RIVA20TA PO (05:53)
[2018-04-30] MEDS ORDERED: GLYB2.5T2 PO (05:53)
[2018-04-30] MEDS ORDERED: SODIUM CHLORIDE FLUSH 10ML SYR IVF PRN (07:30)
[2018-04-30 08:41] VITALS: BP 167/68
[2018-04-30] MEDS ORDERED: TEMPLATE NON-FORMULARY MED. (Rivaroxaban** (Xarelto**) 20 MG) PO SCH (09:00)
[2018-04-30] MEDS ORDERED: hydrALAzine 20 MG/ML, 1ML IVPush PRN (09:30)
[2018-04-30] MEDS ORDERED: DOCUSATE 100 MG CAPSULE PO PRN (09:30)
[2018-04-30] MEDS ORDERED: ACETAMINOPHEN 325 MG TABLET PO PRN (09:30)
[2018-04-30] MEDS ORDERED: ONDANSETRON ODT 4 MG PO PRN (09:30)
[2018-04-30] MEDS: OXYBUTYNIN CHLORIDE 5 MG TABLET PO SCH ×2 (10:27→19:44)
[2018-04-30] MEDS: FUROSEMIDE 20 MG TABLET PO SCH (10:27)
[2018-04-30] MEDS: METOPROLOL TARTRATE 25 MG TABLET PO SCH ×2 (10:28→19:44)
[2018-04-30] MEDS: INSULIN LISPRO 100 UNITS/ML, PEN SQ-INSULIN SCH ×3 (10:30→21:00)
[2018-04-30] MEDS ORDERED: CEFTRIAXONE PMX 1GM/50ML 50 ML IV SCH (11:00)
[2018-04-30 12:54] VITALS: BP 130/65
[2018-04-30] MEDS: HYDROcodone/APAP 5/325 TABLET PO PRN ×2 (13:31→18:24)
[2018-04-30] MEDS ORDERED: MORPHINE SULFATE 4 MG/ML, 1ML IVPush PRN (15:00)
[2018-04-30] MEDS: ERYTHROMYCIN OPHTH 0.5%, 1GM LEFTEYE SCH ×3 (17:13→21:28)
[2018-04-30 18:31] VITALS: BP 128/52
[2018-04-30] MEDS: LOVASTATIN 20 MG TABLET PO SCH (19:44)
[2018-05-01 00:22] VITALS: BP 134/66
[2018-05-01 04:54] LABS: ANION GAP 7 mmol/L (5-15); CALCIUM 8.5 mg/dL (8.5-10.1); CHLORIDE 104 mmol/L (98-107); CREATININE 0.93 mg/dL (0.55-1.02)
[2018-05-01 04:55] LABS: MEAN CORPUSCULAR HEMOGLOBIN 37.4 pg (27.0-34.8); MEAN CORPUSCULAR HGB CONC 33.9 g/dL (32.4-35.8); MEAN CORPUSCULAR VOLUME 110.4 fL (80-100); MEAN PLATELET VOLUME 8.9 fL (7.4-10.4); PLATELET COUNT 135 x10^3/uL (130-400); RED BLOOD COUNT 3.16 x10^6/uL (3.82-5.3); RED CELL DISTRIBUTION WIDTH 17.1 % (9.6-15.2)
[2018-05-01 05:26] LABS: BASOPHILS # (AUTO) 0.02 x10^3/uL (0-0.1); BASOPHILS % (AUTO) 0 % (0-1); EOSINOPHILS # (AUTO) 0.02 x10^3/uL (0-0.4); EOSINOPHILS % (AUTO) 0 % (1-7); LYMPHOCYTES # (AUTO) 1.44 x10^3/uL (1-3.4); LYMPHOCYTES % (AUTO) 27 % (22-44); MD SCAN; MONOCYTES # (AUTO) 0.73 x10^3/uL (0.2-0.8); MONOCYTES % (AUTO) 14 % (2-9); NEUTROPHILS # (AUTO) 3.24 x10^3/uL (1.8-6.8); NEUTROPHILS % (AUTO) 59 % (42-75)
[2018-05-01] MEDS: ASPIRIN 81 MG TABLET EC PO SCH (06:38)
[2018-05-01] MEDS: OMEPRAZOLE 20 MG CAPSULE.DR PO SCH (06:39)
[2018-05-01] MEDS: ERYTHROMYCIN OPHTH 0.5%, 1GM LEFTEYE SCH ×5 (06:41→21:03)
[2018-05-01] MEDS: INSULIN LISPRO 100 UNITS/ML, PEN SQ-INSULIN SCH ×4 (06:42→21:00)
[2018-05-01 08:00] VITALS: BP 133/75
[2018-05-01] MEDS: CALCIUM/VITAMIN D3 250-125 TABLET PO SCH (08:51)
[2018-05-01] MEDS: FUROSEMIDE 20 MG TABLET PO SCH (08:51)
[2018-05-01] MEDS: METOPROLOL TARTRATE 25 MG TABLET PO SCH ×2 (08:51→21:02)
[2018-05-01] MEDS: OXYBUTYNIN CHLORIDE 5 MG TABLET PO SCH ×2 (08:51→21:03)
[2018-05-01 13:30] VITALS: BP 124/72
[2018-05-01] MEDS: HYDROcodone/APAP 5/325 TABLET PO PRN (14:30)
[2018-05-01 18:50] VITALS: BP 120/65
[2018-05-01] MEDS: LOVASTATIN 20 MG TABLET PO SCH (21:03)
[2018-05-02] MEDS: HYDROcodone/APAP 5/325 TABLET PO PRN (00:09)
[2018-05-02 03:50] VITALS: BP 122/70
[2018-05-02 05:37] LABS: BASOPHILS # (AUTO) 0.02 x10^3/uL (0-0.1); BASOPHILS % (AUTO) 0 % (0-1); EOSINOPHILS # (AUTO) 0.05 x10^3/uL (0-0.4); EOSINOPHILS % (AUTO) 1 % (1-7); LYMPHOCYTES # (AUTO) 1.58 x10^3/uL (1-3.4); LYMPHOCYTES % (AUTO) 32 % (22-44); MD NO; MEAN CORPUSCULAR HEMOGLOBIN 38.1 pg (27.0-34.8); MEAN CORPUSCULAR VOLUME 108.8 fL (80-100); MEAN PLATELET VOLUME 8.9 fL (7.4-10.4); MONOCYTES % (AUTO) 12 % (2-9); NEUTROPHILS # (AUTO) 2.76 x10^3/uL (1.8-6.8); NEUTROPHILS % (AUTO) 55 % (42-75); PLATELET COUNT 144 x10^3/uL (130-400); RED BLOOD COUNT 3.03 x10^6/uL (3.82-5.3); RED CELL DISTRIBUTION WIDTH 16.5 % (9.6-15.2)
[2018-05-02 05:45] LABS: ALBUMIN 2.8 g/dL (3.4-5.0); ANION GAP 8 mmol/L (5-15); CALCIUM 8.4 mg/dL (8.5-10.1); CHLORIDE 106 mmol/L (98-107); CREATININE 0.99 mg/dL (0.55-1.02)
[2018-05-02] MEDS: ERYTHROMYCIN OPHTH 0.5%, 1GM LEFTEYE SCH ×5 (06:00→21:23)
[2018-05-02] MEDS: OMEPRAZOLE 20 MG CAPSULE.DR PO SCH (06:43)
[2018-05-02] MEDS: ASPIRIN 81 MG TABLET EC PO SCH (06:43)
[2018-05-02] MEDS: INSULIN LISPRO 100 UNITS/ML, PEN SQ-INSULIN SCH ×4 (07:00→21:00)
[2018-05-02 07:05] VITALS: BP 142/71
[2018-05-02] MEDS: FUROSEMIDE 20 MG TABLET PO SCH (09:00)
[2018-05-02] MEDS: OXYBUTYNIN CHLORIDE 5 MG TABLET PO SCH ×2 (10:43→21:23)
[2018-05-02] MEDS: METOPROLOL TARTRATE 25 MG TABLET PO SCH ×2 (10:43→21:23)
[2018-05-02] MEDS: CALCIUM/VITAMIN D3 250-125 TABLET PO SCH (10:43)
[2018-05-02 12:49] VITALS: BP 113/72
[2018-05-02 20:23] VITALS: BP 129/58
[2018-05-02] MEDS: LOVASTATIN 20 MG TABLET PO SCH (21:23)
[2018-05-03 00:22] VITALS: BP 130/74
[2018-05-03] MEDS: OMEPRAZOLE 20 MG CAPSULE.DR PO SCH (06:42)
[2018-05-03] MEDS: ASPIRIN 81 MG TABLET EC PO SCH (06:42)
[2018-05-03] MEDS: ERYTHROMYCIN OPHTH 0.5%, 1GM LEFTEYE SCH (06:42)
[2018-05-03] MEDS: INSULIN LISPRO 100 UNITS/ML, PEN SQ-INSULIN SCH (06:44)
[2018-05-03 07:24] LABS: BASOPHILS # (AUTO) 0.02 x10^3/uL (0-0.1); BASOPHILS % (AUTO) 1 % (0-1); EOSINOPHILS # (AUTO) 0.04 x10^3/uL (0-0.4); EOSINOPHILS % (AUTO) 1 % (1-7); LYMPHOCYTES # (AUTO) 1.17 x10^3/uL (1-3.4); LYMPHOCYTES % (AUTO) 32 % (22-44); MD NO; MEAN CORPUSCULAR HEMOGLOBIN 36.7 pg (27.0-34.8); MEAN CORPUSCULAR HGB CONC 33.9 g/dL (32.4-35.8); MEAN CORPUSCULAR VOLUME 108.1 fL (80-100); MEAN PLATELET VOLUME 8.1 fL (7.4-10.4); MONOCYTES # (AUTO) 0.31 x10^3/uL (0.2-0.8); MONOCYTES % (AUTO) 9 % (2-9); NEUTROPHILS # (AUTO) 2.12 x10^3/uL (1.8-6.8); NEUTROPHILS % (AUTO) 58 % (42-75); PLATELET COUNT 178 x10^3/uL (130-400); RED BLOOD COUNT 3.29 x10^6/uL (3.82-5.3); RED CELL DISTRIBUTION WIDTH 16.8 % (9.6-15.2)
[2018-05-03 07:29] LABS: ALBUMIN 3.1 g/dL (3.4-5.0); ANION GAP 7 mmol/L (5-15); CALCIUM 8.6 mg/dL (8.5-10.1); CHLORIDE 106 mmol/L (98-107); CREATININE 0.97 mg/dL (0.55-1.02)
[2018-05-03 08:00] VITALS: BP 150/73
[2018-05-03] MEDS: METOPROLOL TARTRATE 25 MG TABLET PO SCH (08:38)
[2018-05-03] MEDS: CALCIUM/VITAMIN D3 250-125 TABLET PO SCH (08:38)
[2018-05-03] MEDS: OXYBUTYNIN CHLORIDE 5 MG TABLET PO SCH (08:38)
[2018-05-03] MEDS: FUROSEMIDE 20 MG TABLET PO SCH (08:38)
== END 2018-05-03 10:30 | disposition home or self-care (01) | DRG 554 ==
LOC: ED 05:39 → EDIP 07:03 → 4NOR 08:23
PROVIDERS: ADMIT Hospitalist; ATTEND Hospitalist
PROC: 0S9D3ZZ Drainage of Left Knee Joint, Percutaneous Approach (ICD-10-PCS; principal; 2018-04-30)
DX: M17.12 Unilateral primary osteoarthritis, left knee (principal); D68.59 Other primary thrombophilia; C18.9 Malignant neoplasm of colon, unspecified; E11.22 Type 2 diabetes mellitus with diabetic chronic kidney disease; I48.91 Unspecified atrial fibrillation; E78.5 Hyperlipidemia, unspecified; K21.9 Gastro-esophageal reflux disease without esophagitis; I12.9 Hypertensive chronic kidney disease with stage 1 through stage 4 chronic kidney disease, or unspecified chronic kidney disease; E78.00 Pure hypercholesterolemia, unspecified; D75.89 Other specified diseases of blood and blood-forming organs; N18.9 Chronic kidney disease, unspecified; Z90.49 Acquired absence of other specified parts of digestive tract; Z85.038 Personal history of other malignant neoplasm of large intestine; Z79.01 Long term (current) use of anticoagulants; Z87.81 Personal history of (healed) traumatic fracture
CPT/HCPCS: 36415; 80048; 82040; 82962; 83735; 84100; 84145; 84560; 85025; 85610; 85651; 85730; 85810; 86140; 87040; 87070; 87205; 89050; 89060; 96374; 99285; G0378; J0696

== ENCOUNTER → 2018-09-15 | Outpatient (CLI) | payer MEDICARE ==
[~2018-09-15] MED LIST changes: +GLYB2.5T2 PO; +OMNIPAQUE 350 MG/ML, 100ML BOTTLE ONE; +RIVA20TA PO
== END | disposition home or self-care (01) ==
LOC: CFH 13:58
PROVIDERS: ATTEND Internal Medicine Hematology & Oncology
DX: C18.0 Malignant neoplasm of cecum (principal); J98.11 Atelectasis; I70.0 Atherosclerosis of aorta; I51.7 Cardiomegaly; E27.9 Disorder of adrenal gland, unspecified; K43.9 Ventral hernia without obstruction or gangrene; M84.48XA Pathological fracture, other site, initial encounter for fracture; M85.88 Other specified disorders of bone density and structure, other site
CPT/HCPCS: 71260; 74177; Q9967

== ENCOUNTER 2018-12-17 08:05 | Outpatient (CLI) | payer MEDICARE | END 2018-12-17 23:59 | disposition home or self-care (01) | LOC: CFH 08:05 | PROVIDERS: ATTEND Registered Nurse | DX: I10 Essential (primary) hypertension (principal); R07.9 Chest pain, unspecified | CPT/HCPCS: 78452; 93017; A9502; J2785 ==

== ENCOUNTER → 2019-03-22 | Outpatient (CLI) | payer MEDICARE ==
[~2019-03-22] MED LIST changes: +OMEP40CA42 PO; -OMEP40CA6 PO; +OXYB5TAB10 PO; -OXYB5TAB7 PO
== END | disposition home or self-care (01) ==
LOC: CFH 10:53
PROVIDERS: ATTEND Internal Medicine Hematology & Oncology
DX: C18.0 Malignant neoplasm of cecum (principal); E11.9 Type 2 diabetes mellitus without complications
CPT/HCPCS: 71260; 74177; Q9967

== ENCOUNTER 2019-04-12 14:24 | Outpatient (CLI) | payer MEDICARE ==
[~2019-04-12 14:24] MED LIST changes: -OMNIPAQUE 350 MG/ML, 100ML BOTTLE ONE
== END 2019-04-12 23:59 | disposition home or self-care (01) ==
LOC: CFH 14:24
PROVIDERS: ATTEND Internal Medicine Cardiovascular Disease
DX: I08.3 Combined rheumatic disorders of mitral, aortic and tricuspid valves (principal); E11.9 Type 2 diabetes mellitus without complications
CPT/HCPCS: 93306